=== PATIENT | male | born 1940 | race Caucasian/White ===

== ENCOUNTER 2021-12-12 17:14 | Inpatient (IN) | payer MEDICARE, MEDICAID ==
[~2021-12-12] VITALS: Ht 167.6 cm; Wt 49.0 kg
[~2021-12-12 17:14] MED LIST: LOSA-381 PO
[2021-12-12 19:32] LABS: BASOPHILS % (AUTO) 0.5 % (0.0-2.0); EOSINOPHILS % (AUTO) 0.9 % (1.0-6.0); HEMATOCRIT 35.4 % (41-53); HEMOGLOBIN 11.7 g/dL (13.5-17.5); LYMPHOCYTES # (AUTO) 1.5 K/uL (1.0-4.8); LYMPHOCYTES % (AUTO) 21.2 % (22.0-44.0); MEAN CORPUSCULAR HEMOGLOBIN 31.7 pg (26.0-34.0); MEAN CORPUSCULAR HGB CONC 33.1 G/dL (31.0-37.0); MEAN CORPUSCULAR VOLUME 96 fL (80-100); MONOCYTES # (AUTO) 0.3 K/uL (0.1-1.0); MONOCYTES % (AUTO) 4.8 % (2.0-9.0); NEUTROPHILS # (AUTO) 5.1 K/uL (1.8-7.7); NEUTROPHILS % (AUTO) 72.6 % (40.0-70.0); PLATELET COUNT (AUTO) 300 K/uL (150-450); RED CELL DISTRIBUTION WIDTH 14.5 % (11.5-14.5)
[2021-12-12 19:39] LABS: CALCIUM, TOTAL 9.7 mg/dL (8.8-10.5); CREATININE 2.49 mg/dL (0.60-1.30); POTASSIUM 5.9 mmol/L (3.5-5.1)
[2021-12-12 19:45] LABS: ALBUMIN 3.2 g/dL (3.4-5.0); BILIRUBIN,TOTAL 0.4 mg/dL (0.1-1.0); TOTAL PROTEIN, SERUM 8.6 g/dL (6.4-8.2)
[2021-12-12] MEDS ORDERED: ONDANSETRON HCL 4 MG/2 ML VIAL IVP PRN (20:30)
[2021-12-12] MEDS ORDERED: SODIUM POLYSTYRENE SULFONATE 15 GM/60 ML SUSPENSION BOTTLE PO ONE (22:15)
[2021-12-12] MEDS ORDERED: CALCIUM GLUCONATE 100 MG/ML 10 ML IVP ONE (22:15)
[2021-12-12] MEDS ORDERED: ALBUTEROL SULFATE 2.5 MG/0.5 ML NEB SOLUTION NEB ONE (22:15)
[2021-12-12] MEDS ORDERED: INSULIN REGULAR, HUMAN 100 UNITS/ML IVP ONE ×2 (22:15)
[2021-12-12] MEDS ORDERED: SODIUM BICARBONATE [ADULT] 8.4% 50 MEQ/50 ML SYRINGE IVP ONE (22:15)
[2021-12-12] MEDS ORDERED: DEXTROSE 50%-WATER 25 GM/50 ML SYRINGE IVP ONE ×2 (22:15)
[2021-12-12] MEDS ORDERED: SODIUM CHLORIDE 0.9% 1,000 ML IV SCH (23:30)
[2021-12-12] MEDS ORDERED: SODIUM CHLORIDE 0.9% 500 ML IV ONE (23:30)
[2021-12-12] MEDS ORDERED: 0.9% SODIUM CHLORIDE 5 ML NEB SOLUTION NEB ONE (23:35)
[2021-12-13 00:59] LABS: APPEARANCE,URINE CLEAR (CLEAR); BILIRUBIN,URINE NEGATIVE (NEGATIVE); GLUCOSE, URINE (UA) NEGATIVE (NEGATIVE); KETONES,URINE NEGATIVE (NEGATIVE); LEUKOCYTE ESTERASE ,URINE SMALL (NEGATIVE); NITRATE,URINE NEGATIVE (NEGATIVE); OCCULT BLOOD,URINE MODERATE (NEGATIVE); PH,URINE 5.5 (5.0-8.0); PROTEIN,URINE NEGATIVE (NEGATIVE); UROBILINOGEN,URINE 0.2 mg/dL (<=1.0)
[2021-12-13 01:00] VITALS: BP 118/70
[2021-12-13 01:00] LABS: CREATININE,URINE RANDOM 220.8 mg/dL (30.0-125.0)
[2021-12-13 01:03] LABS: SODIUM,URINE RANDOM < 5 mmol/l (20-110)
[2021-12-13 01:12] LABS: BACTERIA,URINE Few /HPF (None Seen)
[2021-12-13] MEDS: HEPARIN SODIUM,PORCINE 5,000 UNITS/ML VIAL SQ SCH ×3 (01:25→17:05)
[2021-12-13] MEDS: PIPERACILLIN SODIUM/TAZOBACTAM 2.25 GM in DEXTROSE 5%-WATER 50 ML IV SCH ×4 (01:26→20:25)
[2021-12-13 04:25] VITALS: BP 92/61
[2021-12-13] MEDS ORDERED: RINGERS SOLUTION,LACTATED 1,000 ML IV ONE (06:30)
[2021-12-13] MEDS ORDERED: DIPH-654 PO (07:08)
[2021-12-13] MEDS ORDERED: SERT-158 PO (07:08)
[2021-12-13] MEDS ORDERED: IBUP-1506 PO (07:08)
[2021-12-13] MEDS ORDERED: LOPE2 PO (07:08)
[2021-12-13] MEDS ORDERED: PSYL575P22 PO (07:08)
[2021-12-13] MEDS ORDERED: FINA-27 PO (07:08)
[2021-12-13] MEDS ORDERED: TRAM50TA4 PO (07:08)
[2021-12-13] MEDS ORDERED: PANT-31 PO (07:08)
[2021-12-13] MEDS ORDERED: MAGN200T4 PO (07:08)
[2021-12-13] MEDS ORDERED: DICL100G51 TP (07:08)
[2021-12-13] MEDS ORDERED: MIDO5TAB29 PO (07:08)
[2021-12-13] MEDS ORDERED: TAMS-13 PO (07:08)
[2021-12-13 09:41] VITALS: BP 97/66
[2021-12-13 12:00] VITALS: BP 110/65
[2021-12-13] MEDS: DEXTROSE 5%-0.9% SODIUM CHL 1,000 ML IV SCH ×2 (13:08→18:02)
[2021-12-13 14:09] LABS: BASOPHILS % (AUTO) 0.7 % (0.0-2.0); EOSINOPHILS % (AUTO) 0.5 % (1.0-6.0); HEMATOCRIT 31.7 % (41-53); HEMOGLOBIN 10.6 g/dL (13.5-17.5); LYMPHOCYTES # (AUTO) 1.1 K/uL (1.0-4.8); MEAN CORPUSCULAR HGB CONC 33.6 G/dL (31.0-37.0); MEAN CORPUSCULAR VOLUME 95 fL (80-100); MONOCYTES # (AUTO) 0.3 K/uL (0.1-1.0); MONOCYTES % (AUTO) 5.3 % (2.0-9.0); NEUTROPHILS # (AUTO) 3.5 K/uL (1.8-7.7); NEUTROPHILS % (AUTO) 70.5 % (40.0-70.0); PLATELET COUNT (AUTO) 288 K/uL (150-450); RED BLOOD CELL COUNT(AUTO) 3.33 MIL/uL (4.50-5.90); RED CELL DISTRIBUTION WIDTH 14.5 % (11.5-14.5)
[2021-12-13 14:11] LABS: CALCIUM, TOTAL 9.3 mg/dL (8.8-10.5); CREATININE 2.55 mg/dL (0.60-1.30); POTASSIUM 4.3 mmol/L (3.5-5.1)
[2021-12-13 14:18] LABS: BILIRUBIN,DIRECT 0.3 mg/dL (0.00-0.20); BILIRUBIN,TOTAL 0.5 mg/dL (0.1-1.0); MAGNESIUM 1.5 mg/dL (1.80-2.40); PHOSPHORUS 4.7 mg/dL (2.5-4.9); TOTAL PROTEIN, SERUM 8.1 g/dL (6.4-8.2)
[2021-12-13 16:00] VITALS: BP 97/55
[2021-12-13] MEDS ORDERED: MAGNESIUM SULFATE 2 GM/WATER 50 ML IV ONE (16:45)
[2021-12-13] MEDS ORDERED: SODIUM CHLORIDE 0.9% 250 ML IV ONE (17:52)
[2021-12-13 20:54] VITALS: BP 104/73
[2021-12-14] MEDS: PIPERACILLIN SODIUM/TAZOBACTAM 2.25 GM in DEXTROSE 5%-WATER 50 ML IV SCH ×4 (00:22→17:44)
[2021-12-14] MEDS: HEPARIN SODIUM,PORCINE 5,000 UNITS/ML VIAL SQ SCH ×3 (00:23→16:42)
[2021-12-14 00:35] VITALS: BP 110/67
[2021-12-14 04:25] VITALS: BP 101/53
[2021-12-14] MEDS: DEXTROSE 5%-0.9% SODIUM CHL 1,000 ML IV SCH ×2 (05:56→11:59)
[2021-12-14 07:15] VITALS: BP 99/49
[2021-12-14 07:48] LABS: CALCIUM, TOTAL 9.2 mg/dL (8.8-10.5); CREATININE 2.46 mg/dL (0.60-1.30); MAGNESIUM 2.5 mg/dL (1.80-2.40); PHOSPHORUS 4.3 mg/dL (2.5-4.9); POTASSIUM 3.9 mmol/L (3.5-5.1)
[2021-12-14 11:03] VITALS: BP 98/58
[2021-12-14 15:44] VITALS: BP 96/60
[2021-12-14 18:00] LABS: COVID AG,FIA SOURCE NASOPHARYNGEAL
[2021-12-14 20:55] VITALS: BP 101/56
[2021-12-14] MEDS ORDERED: MORPHINE SULFATE 2 MG/ML SYRINGE IVP PRN (22:15)
[2021-12-15] MEDS: PIPERACILLIN SODIUM/TAZOBACTAM 2.25 GM in DEXTROSE 5%-WATER 50 ML IV SCH ×3 (00:43→13:35)
[2021-12-15] MEDS: HEPARIN SODIUM,PORCINE 5,000 UNITS/ML VIAL SQ SCH ×2 (00:44→08:46)
[2021-12-15] MEDS: DEXTROSE 5%-0.9% SODIUM CHL 1,000 ML IV SCH ×2 (00:44→08:46)
[2021-12-15 04:26] VITALS: BP 111/68
[2021-12-15 06:22] LABS: CALCIUM, TOTAL 8.3 mg/dL (8.8-10.5); CREATININE 2.16 mg/dL (0.60-1.30); MAGNESIUM 1.8 mg/dL (1.80-2.40); PHOSPHORUS 2.9 mg/dL (2.5-4.9); POTASSIUM 3.8 mmol/L (3.5-5.1)
[2021-12-15 08:21] VITALS: BP 91/53
[2021-12-15 11:48] VITALS: BP 126/56
[2021-12-15] MEDS ORDERED: [UNRECOGNIZED DRUG - CODE] IV (15:21)
[2021-12-15] MEDS ORDERED: PIPE2.2515 IV (15:22)
== END 2021-12-15 16:00 | DRG 871 ==
LOC: EMS 17:17 → 5N 20:22
PROVIDERS: ADMIT Internal Medicine; ATTEND Internal Medicine
PROC: 02HV33Z Insertion of Infusion Device into Superior Vena Cava, Percutaneous Approach (ICD-10-PCS; principal; 2021-12-13)
DX: A41.9 Sepsis, unspecified organism (principal); G93.41 Metabolic encephalopathy; E43 Unspecified severe protein-calorie malnutrition; N39.0 Urinary tract infection, site not specified; K80.00 Calculus of gallbladder with acute cholecystitis without obstruction; Z68.1 Body mass index [BMI] 19.9 or less, adult; I69.351 Hemiplegia and hemiparesis following cerebral infarction affecting right dominant side; E87.5 Hyperkalemia; Z20.822 Contact with and (suspected) exposure to COVID-19; D64.9 Anemia, unspecified; E83.42 Hypomagnesemia; Z66 Do not resuscitate; N18.9 Chronic kidney disease, unspecified; I12.9 Hypertensive chronic kidney disease with stage 1 through stage 4 chronic kidney disease, or unspecified chronic kidney disease; Z93.3 Colostomy status; Z85.038 Personal history of other malignant neoplasm of large intestine; Z79.899 Other long term (current) drug therapy; Z82.49 Family history of ischemic heart disease and other diseases of the circulatory system; Z90.49 Acquired absence of other specified parts of digestive tract
CPT/HCPCS: 36245; 36569; 70450; 70551; 71045; 71250; 72192; 74150; 76705; 80048; 80053; 80076; 81001; 82550; 82570; 83690; 83735; 84100; 84300; 84484; 85025; 87081; 87086; 92610; 93005; 93306; 94640; 99291; J0610; J1644; J1815; J2270; J2543; J3475; J3490; J7030; J7042; J7050; J7060; 36415-L1; 36415-TC; J7613

== ENCOUNTER 2022-01-27 20:33 | Inpatient (IN) | payer MEDICARE, MEDICAID ==
[~2022-01-27] VITALS: Ht 167.6 cm; Wt 69.5 kg
[~2022-01-27 20:33] MED LIST changes: +ACET-3385 PO; +CALC1AMP IVP; +CHOL500013 PO; +ETHY1MED2 NASAL; +FAMO20 IVP; +FLUC200T85 PO; +HEPA500018 SQ; +LEVO750T68 PO; -LOSA-381 PO; +NYST30CR9 TP; +OXYC5 PO; +PIPE2.2515 IV; +THIA100V4 IVP; +[UNRECOGNIZED DRUG - CODE] IV
[2022-01-27 21:38] LABS: BASOPHILS % (AUTO) 0.4 % (0.0-2.0); EOSINOPHILS % (AUTO) 0.3 % (1.0-6.0); HEMATOCRIT 25.8 % (41-53); HEMOGLOBIN 8.4 g/dL (13.5-17.5); LYMPHOCYTES # (AUTO) 0.7 K/uL (1.0-4.8); LYMPHOCYTES % (AUTO) 3.7 % (22.0-44.0); MEAN CORPUSCULAR HEMOGLOBIN 29.8 pg (26.0-34.0); MEAN CORPUSCULAR HGB CONC 32.6 G/dL (31.0-37.0); MEAN CORPUSCULAR VOLUME 91 fL (80-100); MONOCYTES # (AUTO) 0.4 K/uL (0.1-1.0); MONOCYTES % (AUTO) 2.1 % (2.0-9.0); PLATELET COUNT (AUTO) 295 K/uL (150-450); RED BLOOD CELL COUNT(AUTO) 2.82 MIL/uL (4.50-5.90); RED CELL DISTRIBUTION WIDTH 16.2 % (11.5-14.5)
[2022-01-27 21:41] LABS: NEUTROPHILS % (AUTO) 93.5 % (40.0-70.0)
[2022-01-27 21:49] LABS: ANION GAP 9 mmol/L (8-16); CALCIUM, TOTAL 7.9 mg/dL (8.8-10.5); CARBON DIOXIDE 24 mmol/L (22-29); CHLORIDE 104 mmol/L (98-107); CREATININE 2.41 mg/dL (0.60-1.30); GLOMERULAR FILTR. RATE CALC 26 mL/min (>60); GLUCOSE,RANDOM 76 mg/dL (70-110); POTASSIUM 3.8 mmol/L (3.5-5.1); SODIUM SERUM 137 mmol/L (136-145); UREA NITROGEN, BLOOD 21 mg/dL (7-18)
[2022-01-27 21:50] LABS: INR 1.2 (0.9-1.1); PROTHROMBIN TIME 12.9 SEC (9.4-11.6)
[2022-01-27 21:55] LABS: ALANINE AMINOTRANSFERASE 34 U/L (12-78); ALBUMIN 1.4 g/dL (3.4-5.0); ALKALINE PHOSPHATASE 413 U/L (46-116); ASPARTATE AMINOTRANSFERASE 48 U/L (15-37); B-TYPE NATRIURETIC PEPTIDE 613 pg/mL (0-100); BILIRUBIN,TOTAL 0.7 mg/dL (0.1-1.0); TOTAL PROTEIN, SERUM 6.1 g/dL (6.4-8.2)
[2022-01-27 21:56] LABS: CREATINE KINASE, TOTAL ONLY < 7 U/L (39-308)
[2022-01-27 22:04] LABS: COVID AG,FIA SOURCE NASAL SWAB
[2022-01-27 22:15] LABS: APPEARANCE,URINE TURBID (CLEAR); BILIRUBIN,URINE NEGATIVE (NEGATIVE); GLUCOSE, URINE (UA) NEGATIVE (NEGATIVE); KETONES,URINE NEGATIVE (NEGATIVE); LEUKOCYTE ESTERASE ,URINE LARGE (NEGATIVE); NITRATE,URINE NEGATIVE (NEGATIVE); OCCULT BLOOD,URINE MODERATE (NEGATIVE); PH,URINE 5.5 (5.0-8.0); PROTEIN,URINE 30-70 mg/dL (NEGATIVE); SPECIFIC GRAVITIY, URINE 1.011 (1.003-1.030); UROBILINOGEN,URINE <=1.0 mg/dL (<=1.0)
[2022-01-27] MEDS ORDERED: AMPICILLIN SODIUM/SULBACTAM NA 1.5 GM in SODIUM CHLORIDE 0.9% 50 ML IV ONE (22:30)
[2022-01-27] MEDS ORDERED: DIPH-654 PO (23:17)
[2022-01-27] MEDS ORDERED: TRAM50TA4 PO (23:17)
[2022-01-27] MEDS ORDERED: FLUC200T85 PO (23:17)
[2022-01-27] MEDS ORDERED: LEVO750T68 PO (23:17)
[2022-01-27] MEDS ORDERED: PANT-31 PO (23:17)
[2022-01-27] MEDS ORDERED: THIA100T80 PO (23:17)
[2022-01-27] MEDS ORDERED: CALC0.2521 PO (23:17)
[2022-01-27] MEDS ORDERED: FAMO20 PO (23:17)
[2022-01-27] MEDS ORDERED: TAMS-13 PO (23:17)
[2022-01-27] MEDS ORDERED: LOPE2 PO (23:17)
[2022-01-27] MEDS ORDERED: SERT-158 PO (23:17)
[2022-01-27] MEDS ORDERED: MAGN400T7 PO (23:17)
[2022-01-27] MEDS ORDERED: DICL100G51 TP (23:17)
[2022-01-27] MEDS ORDERED: MIDO5TAB29 PO (23:17)
[2022-01-27] MEDS ORDERED: FINA-27 PO (23:17)
[2022-01-28 00:02] LABS: BACTERIA,URINE Moderate /HPF (None Seen); RBC,URINE 26-50 /HPF (0-2); WBC,URINE >100 /HPF (0-5)
[2022-01-28 00:03] LABS: SQUAMOUS EPITHELIAL CELL,UR Few /LPF (None Seen); YEAST,URINE Moderate /HPF (None Seen)
[2022-01-28] MEDS ORDERED: BARIUM SULFATE 0.1% SUSPENSION 450 ML BOTTLE PO ONE (01:30)
[2022-01-28] MEDS ORDERED: ACETAMINOPHEN 500 MG TABLET PO PRN (01:45)
[2022-01-28] MEDS ORDERED: ACETAMINOPHEN 325 MG TABLET PO PRN (01:45)
[2022-01-28] MEDS ORDERED: LOPERAMIDE HCL 2 MG CAPSULE PO PRN (01:45)
[2022-01-28] MEDS ORDERED: NYSTATIN 30 GM CREAM TP PRN (01:45)
[2022-01-28] MEDS ORDERED: ONDANSETRON HCL 4 MG/2 ML VIAL IVP PRN (01:45)
[2022-01-28 03:01] VITALS: BP 112/59
[2022-01-28] MEDS: SODIUM CHLORIDE 0.9% 1,000 ML IV SCH ×3 (03:10→17:45)
[2022-01-28 07:29] VITALS: BP 116/68
[2022-01-28] MEDS ORDERED: HEPARIN SODIUM,PORCINE 5,000 UNITS/ML VIAL SQ SCH (08:00)
[2022-01-28] MEDS ORDERED: VANCOMYCIN 1GM/WATER(PEG/NADA) 200 ML IV ONE (08:15)
[2022-01-28 09:00] LABS: CALCIUM, TOTAL 7.8 mg/dL (8.8-10.5); CREATININE 2.35 mg/dL (0.60-1.30); POTASSIUM 4.2 mmol/L (3.5-5.1)
[2022-01-28] MEDS ORDERED: PANTOPRAZOLE SODIUM 40 MG DR TABLET PO SCH (09:00)
[2022-01-28] MEDS ORDERED: MAGNESIUM OXIDE 400 MG TABLET PO SCH (09:00)
[2022-01-28] MEDS ORDERED: DIPHENOXYLATE/ATROP 2.5-0.025 MG TABLET PO SCH (09:00)
[2022-01-28] MEDS ORDERED: THIAMINE 100 MG/ML 2 ML VIAL IVP SCH (09:00)
[2022-01-28] MEDS ORDERED: FAMOTIDINE 20 MG TABLET PO SCH (09:00)
[2022-01-28] MEDS ORDERED: THIAMINE 100 MG TABLET PO SCH (09:00)
[2022-01-28] MEDS ORDERED: LEVOFLOXACIN 750 MG TABLET PO SCH (09:00)
[2022-01-28 09:20] LABS: BASOPHILS % (AUTO) 0.3 % (0.0-2.0); EOSINOPHILS % (AUTO) 1.2 % (1.0-6.0); HEMATOCRIT 24.9 % (41-53); HEMOGLOBIN 8.3 g/dL (13.5-17.5); LYMPHOCYTES # (AUTO) 0.9 K/uL (1.0-4.8); LYMPHOCYTES % (AUTO) 6.9 % (22.0-44.0); MEAN CORPUSCULAR HEMOGLOBIN 30.1 pg (26.0-34.0); MEAN CORPUSCULAR HGB CONC 33.5 G/dL (31.0-37.0); MEAN CORPUSCULAR VOLUME 90 fL (80-100); MONOCYTES # (AUTO) 0.4 K/uL (0.1-1.0); MONOCYTES % (AUTO) 2.6 % (2.0-9.0); NEUTROPHILS # (AUTO) 12.2 K/uL (1.8-7.7); PLATELET COUNT (AUTO) 257 K/uL (150-450); RED BLOOD CELL COUNT(AUTO) 2.77 MIL/uL (4.50-5.90); RED CELL DISTRIBUTION WIDTH 16.2 % (11.5-14.5)
[2022-01-28] MEDS: MIDODRINE HCL 5 MG TABLET PO SCH ×3 (10:40→21:27)
[2022-01-28] MEDS: FLUCONAZOLE 200 MG TABLET PO SCH (10:40)
[2022-01-28] MEDS: TAMSULOSIN HCL 0.4 MG CAPSULE PO SCH (10:41)
[2022-01-28] MEDS: FINASTERIDE 5 MG TABLET PO SCH (10:42)
[2022-01-28] MEDS: CHOLECALCIFEROL (VIT D3) 5,000 [125 MCG] UNITS CAPSULE PO SCH (10:43)
[2022-01-28] MEDS: FAMOTIDINE 10 MG/ML 2 ML VIAL IVP SCH (11:00)
[2022-01-28] MEDS: DICLOFENAC SODIUM 1% 100 GM GEL [2GM] TP SCH ×3 (11:04→21:29)
[2022-01-28] MEDS: CefTRIAXone SODIUM 2 GM in DEXTROSE 5%-WATER 50 ML IV SCH (11:04)
[2022-01-28 11:14] VITALS: BP 115/71
[2022-01-28] MEDS: MetroNIDAZOLE 500 MG/NACL 100 ML IV SCH ×2 (13:40→18:10)
[2022-01-28 14:42] VITALS: BP 104/68
[2022-01-28 20:08] VITALS: BP 108/69
[2022-01-28] MEDS: SERTRALINE HCL 50 MG TABLET PO SCH (21:28)
[2022-01-28 23:50] VITALS: BP 116/60
[2022-01-29] MEDS: SODIUM CHLORIDE 0.9% 1,000 ML IV SCH ×3 (00:25→17:45)
[2022-01-29] MEDS: MetroNIDAZOLE 500 MG/NACL 100 ML IV SCH ×3 (02:41→18:36)
[2022-01-29 04:43] VITALS: BP 115/69
[2022-01-29 07:01] VITALS: BP 111/64
[2022-01-29 07:35] LABS: BASOPHILS % (AUTO) 0.5 % (0.0-2.0); EOSINOPHILS % (AUTO) 1.1 % (1.0-6.0); HEMOGLOBIN 7.1 g/dL (13.5-17.5); LYMPHOCYTES # (AUTO) 0.8 K/uL (1.0-4.8); LYMPHOCYTES % (AUTO) 8.6 % (22.0-44.0); MEAN CORPUSCULAR HEMOGLOBIN 30.5 pg (26.0-34.0); MEAN CORPUSCULAR HGB CONC 33.8 G/dL (31.0-37.0); MEAN CORPUSCULAR VOLUME 90 fL (80-100); MONOCYTES # (AUTO) 0.3 K/uL (0.1-1.0); MONOCYTES % (AUTO) 3.2 % (2.0-9.0); PLATELET COUNT (AUTO) 239 K/uL (150-450); RED BLOOD CELL COUNT(AUTO) 2.33 MIL/uL (4.50-5.90); RED CELL DISTRIBUTION WIDTH 16.7 % (11.5-14.5)
[2022-01-29 07:41] LABS: NEUTROPHILS % (AUTO) 86.6 % (40.0-70.0)
[2022-01-29 07:48] LABS: CALCIUM, TOTAL 7.6 mg/dL (8.8-10.5); CREATININE 2.06 mg/dL (0.60-1.30); POTASSIUM 3.3 mmol/L (3.5-5.1)
[2022-01-29] MEDS: MIDODRINE HCL 5 MG TABLET PO SCH ×3 (10:00→20:08)
[2022-01-29] MEDS: FINASTERIDE 5 MG TABLET PO SCH (10:00)
[2022-01-29] MEDS: CHOLECALCIFEROL (VIT D3) 5,000 [125 MCG] UNITS CAPSULE PO SCH (10:00)
[2022-01-29] MEDS: TAMSULOSIN HCL 0.4 MG CAPSULE PO SCH (10:00)
[2022-01-29] MEDS: FLUCONAZOLE 200 MG TABLET PO SCH (10:00)
[2022-01-29] MEDS: FAMOTIDINE 10 MG/ML 2 ML VIAL IVP SCH (10:00)
[2022-01-29] MEDS: VANCOMYCIN HCL 500 MG in DEXTROSE 5%-WATER 100 ML IV SCH (10:01)
[2022-01-29 10:27] VITALS: BP 134/87
[2022-01-29] MEDS: DICLOFENAC SODIUM 1% 100 GM GEL [2GM] TP SCH ×3 (10:32→20:09)
[2022-01-29] MEDS: CefTRIAXone SODIUM 2 GM in DEXTROSE 5%-WATER 50 ML IV SCH (11:06)
[2022-01-29 14:15] VITALS: BP 126/75
[2022-01-29] MEDS ORDERED: POTASSIUM CHLORIDE 20 MEQ ER TABLET PO ONE (16:00)
[2022-01-29 19:20] VITALS: BP 130/73
[2022-01-29] MEDS: SERTRALINE HCL 50 MG TABLET PO SCH (20:08)
[2022-01-29 23:49] VITALS: BP 124/64
[2022-01-30] MEDS: MetroNIDAZOLE 500 MG/NACL 100 ML IV SCH ×3 (02:02→18:02)
[2022-01-30 03:40] VITALS: BP 141/71
[2022-01-30 07:37] VITALS: BP 154/96
[2022-01-30] MEDS: MIDODRINE HCL 5 MG TABLET PO SCH ×3 (08:19→21:09)
[2022-01-30] MEDS: VANCOMYCIN HCL 500 MG in DEXTROSE 5%-WATER 100 ML IV SCH (08:21)
[2022-01-30] MEDS: FAMOTIDINE 10 MG/ML 2 ML VIAL IVP SCH (08:22)
[2022-01-30] MEDS: CHOLECALCIFEROL (VIT D3) 5,000 [125 MCG] UNITS CAPSULE PO SCH (08:23)
[2022-01-30] MEDS: FLUCONAZOLE 200 MG TABLET PO SCH (08:23)
[2022-01-30] MEDS: TAMSULOSIN HCL 0.4 MG CAPSULE PO SCH (08:23)
[2022-01-30] MEDS: FINASTERIDE 5 MG TABLET PO SCH (08:23)
[2022-01-30] MEDS: DICLOFENAC SODIUM 1% 100 GM GEL [2GM] TP SCH ×3 (08:23→21:09)
[2022-01-30 09:15] LABS: BASOPHILS % (AUTO) 0.5 % (0.0-2.0); EOSINOPHILS % (AUTO) 0.4 % (1.0-6.0); HEMATOCRIT 24.1 % (41-53); HEMOGLOBIN 8.1 g/dL (13.5-17.5); LYMPHOCYTES # (AUTO) 0.8 K/uL (1.0-4.8); LYMPHOCYTES % (AUTO) 9.8 % (22.0-44.0); MEAN CORPUSCULAR HEMOGLOBIN 30.3 pg (26.0-34.0); MEAN CORPUSCULAR HGB CONC 33.4 G/dL (31.0-37.0); MEAN CORPUSCULAR VOLUME 91 fL (80-100); MONOCYTES # (AUTO) 0.2 K/uL (0.1-1.0); MONOCYTES % (AUTO) 2.8 % (2.0-9.0); NEUTROPHILS # (AUTO) 6.9 K/uL (1.8-7.7); PLATELET COUNT (AUTO) 265 K/uL (150-450); RED BLOOD CELL COUNT(AUTO) 2.66 MIL/uL (4.50-5.90); RED CELL DISTRIBUTION WIDTH 16.6 % (11.5-14.5)
[2022-01-30 09:18] LABS: NEUTROPHILS % (AUTO) 86.5 % (40.0-70.0)
[2022-01-30 09:24] LABS: CALCIUM, TOTAL 7.6 mg/dL (8.8-10.5); CREATININE 1.82 mg/dL (0.60-1.30); POTASSIUM 3.5 mmol/L (3.5-5.1)
[2022-01-30] MEDS: CefTRIAXone SODIUM 2 GM in DEXTROSE 5%-WATER 50 ML IV SCH (10:35)
[2022-01-30 11:29] VITALS: BP 157/97
[2022-01-30] MEDS: SODIUM CHLORIDE 0.9% 1,000 ML IV SCH ×4 (12:39→21:09)
[2022-01-30 12:42] VITALS: BP 134/87
[2022-01-30] MEDS ORDERED: FentaNYL CITRATE PF 100 MCG/2 ML VIAL ONE (14:40)
[2022-01-30] MEDS ORDERED: HEPARIN SODIUM 1000 UNITS/NS 0 ML ONE (14:41)
[2022-01-30] MEDS ORDERED: MIDAZOLAM HCL 2 MG/2 ML VIAL ONE (14:41)
[2022-01-30] MEDS ORDERED: LIDOCAINE/PF 1% 30 ML VIAL ONE (14:41)
[2022-01-30] MEDS ORDERED: FLUMAZENIL 0.1 MG/ML 5 ML VIAL IVP ONE (14:41)
[2022-01-30] MEDS ORDERED: NALOXONE HCL 0.4 MG/ML VIAL ONE (14:42)
[2022-01-30 16:29] VITALS: BP 138/80
[2022-01-30 19:55] VITALS: BP 133/89
[2022-01-30] MEDS: SERTRALINE HCL 50 MG TABLET PO SCH (21:09)
[2022-01-31] MEDS: MetroNIDAZOLE 500 MG/NACL 100 ML IV SCH ×3 (03:20→20:03)
[2022-01-31] MEDS: SODIUM CHLORIDE 0.9% 1,000 ML IV SCH ×2 (05:27→20:03)
[2022-01-31 06:51] LABS: BASOPHILS % (AUTO) 0.1 % (0.0-2.0); EOSINOPHILS % (AUTO) 0 % (1.0-6.0); HEMATOCRIT 25.3 % (41-53); HEMOGLOBIN 8.4 g/dL (13.5-17.5); LYMPHOCYTES # (AUTO) 0.5 K/uL (1.0-4.8); LYMPHOCYTES % (AUTO) 8.3 % (22.0-44.0); MEAN CORPUSCULAR HEMOGLOBIN 30.2 pg (26.0-34.0); MEAN CORPUSCULAR HGB CONC 33.2 G/dL (31.0-37.0); MEAN CORPUSCULAR VOLUME 91 fL (80-100); MONOCYTES # (AUTO) 0.1 K/uL (0.1-1.0); MONOCYTES % (AUTO) 2.1 % (2.0-9.0); PLATELET COUNT (AUTO) 242 K/uL (150-450); RED BLOOD CELL COUNT(AUTO) 2.79 MIL/uL (4.50-5.90); RED CELL DISTRIBUTION WIDTH 17.3 % (11.5-14.5)
[2022-01-31 06:54] LABS: NEUTROPHILS % (AUTO) 89.5 % (40.0-70.0)
[2022-01-31] MEDS ORDERED: IOHEXOL 240 MG/ML 20 ML VIAL ONE ×3 (07:01→08:37)
[2022-01-31 07:05] LABS: CALCIUM, TOTAL 7.8 mg/dL (8.8-10.5); CREATININE 1.64 mg/dL (0.60-1.30); POTASSIUM 3.3 mmol/L (3.5-5.1); VANCOMYCIN,RANDOM 12.1 mcg/mL (25.0-50.0)
[2022-01-31] MEDS ORDERED: SODIUM CHLORIDE 0.9% 1,000 ML IV ONE (07:30)
[2022-01-31] MEDS ORDERED: BUPIVACAINE HCL/PF 0.5% 30 ML VIAL ONE (08:10)
[2022-01-31] MEDS: DICLOFENAC SODIUM 1% 100 GM GEL [2GM] TP SCH ×3 (08:47→20:34)
[2022-01-31] MEDS: MIDODRINE HCL 5 MG TABLET PO SCH ×3 (09:00→20:34)
[2022-01-31] MEDS: TAMSULOSIN HCL 0.4 MG CAPSULE PO SCH (09:00)
[2022-01-31] MEDS: CHOLECALCIFEROL (VIT D3) 5,000 [125 MCG] UNITS CAPSULE PO SCH (09:00)
[2022-01-31] MEDS: FLUCONAZOLE 200 MG TABLET PO SCH (09:00)
[2022-01-31] MEDS: FINASTERIDE 5 MG TABLET PO SCH (09:00)
[2022-01-31] MEDS: VANCOMYCIN HCL 500 MG in DEXTROSE 5%-WATER 100 ML IV SCH (10:25)
[2022-01-31 13:58] VITALS: BP 129/81
[2022-01-31] MEDS: CefTRIAXone SODIUM 2 GM in DEXTROSE 5%-WATER 50 ML IV SCH (14:01)
[2022-01-31 14:28] VITALS: BP 126/73
[2022-01-31] MEDS: FAMOTIDINE 10 MG/ML 2 ML VIAL IVP SCH (14:31)
[2022-01-31 16:22] VITALS: BP 142/79
[2022-01-31] MEDS: SERTRALINE HCL 50 MG TABLET PO SCH (20:04)
[2022-01-31 20:21] VITALS: BP 133/75
[2022-01-31] MEDS: OXYGEN THERAPY IH SCH (20:38)
[2022-02-01] VITALS (7 sets, daily range): BP systolic 117–133; BP diastolic 75–84
[2022-02-01] MEDS: MetroNIDAZOLE 500 MG/NACL 100 ML IV SCH ×2 (03:10→12:13)
[2022-02-01] MEDS ORDERED: PROPOFOL 1% 20 ML VIAL IVP ONE (05:03)
[2022-02-01] MEDS: SODIUM CHLORIDE 0.9% 1,000 ML IV SCH (05:35)
[2022-02-01 06:06] LABS: BASOPHILS % (AUTO) 0.7 % (0.0-2.0); EOSINOPHILS % (AUTO) 0.1 % (1.0-6.0); HEMATOCRIT 24.4 % (41-53); HEMOGLOBIN 8.1 g/dL (13.5-17.5); LYMPHOCYTES # (AUTO) 0.8 K/uL (1.0-4.8); LYMPHOCYTES % (AUTO) 8.7 % (22.0-44.0); MEAN CORPUSCULAR HEMOGLOBIN 30.1 pg (26.0-34.0); MEAN CORPUSCULAR HGB CONC 33.1 G/dL (31.0-37.0); MEAN CORPUSCULAR VOLUME 91 fL (80-100); MONOCYTES # (AUTO) 0.3 K/uL (0.1-1.0); MONOCYTES % (AUTO) 2.8 % (2.0-9.0); NEUTROPHILS # (AUTO) 7.9 K/uL (1.8-7.7); PLATELET COUNT (AUTO) 221 K/uL (150-450); RED BLOOD CELL COUNT(AUTO) 2.68 MIL/uL (4.50-5.90)
[2022-02-01 06:12] LABS: NEUTROPHILS % (AUTO) 87.7 % (40.0-70.0)
[2022-02-01 06:34] LABS: CALCIUM, TOTAL 7.5 mg/dL (8.8-10.5); CREATININE 1.55 mg/dL (0.60-1.30); POTASSIUM 3.3 mmol/L (3.5-5.1)
[2022-02-01] MEDS: VANCOMYCIN HCL 750 MG in DEXTROSE 5%-WATER 250 ML IV SCH (08:23)
[2022-02-01] MEDS: CHOLECALCIFEROL (VIT D3) 5,000 [125 MCG] UNITS CAPSULE PO SCH (08:24)
[2022-02-01] MEDS: FINASTERIDE 5 MG TABLET PO SCH (08:24)
[2022-02-01] MEDS: FAMOTIDINE 10 MG/ML 2 ML VIAL IVP SCH (08:25)
[2022-02-01] MEDS: FLUCONAZOLE 200 MG TABLET PO SCH (08:25)
[2022-02-01] MEDS: TAMSULOSIN HCL 0.4 MG CAPSULE PO SCH (08:26)
[2022-02-01] MEDS: DICLOFENAC SODIUM 1% 100 GM GEL [2GM] TP SCH ×3 (08:41→20:39)
[2022-02-01] MEDS: OXYGEN THERAPY IH SCH (08:42)
[2022-02-01] MEDS: MIDODRINE HCL 5 MG TABLET PO SCH ×3 (08:43→20:39)
[2022-02-01] MEDS: CefTRIAXone SODIUM 2 GM in DEXTROSE 5%-WATER 50 ML IV SCH (11:25)
[2022-02-01] MEDS ORDERED: POTASSIUM CHLORIDE 20 MEQ ER TABLET PO PRN (11:45)
[2022-02-01] MEDS: POTASSIUM CHL 10 MEQ/WATER 50 ML IV PRN ×3 (18:17→23:27)
[2022-02-01] MEDS: SERTRALINE HCL 50 MG TABLET PO SCH (20:39)
[2022-02-02 04:59] VITALS: BP 125/74
[2022-02-02 06:20] LABS: BASOPHILS % (AUTO) 0.2 % (0.0-2.0); EOSINOPHILS % (AUTO) 0.2 % (1.0-6.0); HEMATOCRIT 22.1 % (41-53); HEMOGLOBIN 7.3 g/dL (13.5-17.5); LYMPHOCYTES # (AUTO) 0.9 K/uL (1.0-4.8); LYMPHOCYTES % (AUTO) 13.7 % (22.0-44.0); MEAN CORPUSCULAR HGB CONC 33.1 G/dL (31.0-37.0); MEAN CORPUSCULAR VOLUME 91 fL (80-100); MONOCYTES # (AUTO) 0.2 K/uL (0.1-1.0); MONOCYTES % (AUTO) 3.1 % (2.0-9.0); NEUTROPHILS # (AUTO) 5.3 K/uL (1.8-7.7); NEUTROPHILS % (AUTO) 82.8 % (40.0-70.0); PLATELET COUNT (AUTO) 210 K/uL (150-450); RED BLOOD CELL COUNT(AUTO) 2.44 MIL/uL (4.50-5.90)
[2022-02-02 06:32] LABS: CALCIUM, TOTAL 7.6 mg/dL (8.8-10.5); CREATININE 1.46 mg/dL (0.60-1.30); MAGNESIUM 1.1 mg/dL (1.80-2.40); PHOSPHORUS 3.3 mg/dL (2.5-4.9); POTASSIUM 3.9 mmol/L (3.5-5.1)
[2022-02-02 08:07] VITALS: BP 120/83
[2022-02-02] MEDS: VANCOMYCIN HCL 750 MG in DEXTROSE 5%-WATER 250 ML IV SCH (08:37)
[2022-02-02] MEDS: FLUCONAZOLE 200 MG TABLET PO SCH (08:37)
[2022-02-02] MEDS: FINASTERIDE 5 MG TABLET PO SCH (08:37)
[2022-02-02] MEDS: TAMSULOSIN HCL 0.4 MG CAPSULE PO SCH (08:37)
[2022-02-02] MEDS: MIDODRINE HCL 5 MG TABLET PO SCH ×3 (08:39→21:11)
[2022-02-02] MEDS: CHOLECALCIFEROL (VIT D3) 5,000 [125 MCG] UNITS CAPSULE PO SCH (08:39)
[2022-02-02] MEDS: FAMOTIDINE 10 MG/ML 2 ML VIAL IVP SCH (08:40)
[2022-02-02] MEDS: DICLOFENAC SODIUM 1% 100 GM GEL [2GM] TP SCH ×3 (08:40→21:11)
[2022-02-02] MEDS ORDERED: MAGNESIUM SULFATE 4 GM/WATER 100 ML IV ONE (10:45)
[2022-02-02 12:01] LABS: GLUCOMETER DEV NAME(LOC) 5N.1C; GLUCOSE,POINT OF CARE 118 MG/DL (70-110)
[2022-02-02 12:06] VITALS: BP 116/72
[2022-02-02 15:39] VITALS: BP_SYST 110; BP_SYST 80; BP_DIAS 110; BP_DIAS 69
[2022-02-02 19:27] VITALS: BP 106/71
[2022-02-02] MEDS: SERTRALINE HCL 50 MG TABLET PO SCH (21:11)
[2022-02-02 23:52] VITALS: BP 100/63
[2022-02-03 04:34] VITALS: BP 109/69
[2022-02-03 07:05] LABS: BASOPHILS % (AUTO) 0.5 % (0.0-2.0); EOSINOPHILS % (AUTO) 2.2 % (1.0-6.0); HEMATOCRIT 21.5 % (41-53); HEMOGLOBIN 7.1 g/dL (13.5-17.5); LYMPHOCYTES # (AUTO) 0.9 K/uL (1.0-4.8); LYMPHOCYTES % (AUTO) 14.4 % (22.0-44.0); MEAN CORPUSCULAR HEMOGLOBIN 29.7 pg (26.0-34.0); MEAN CORPUSCULAR HGB CONC 32.8 G/dL (31.0-37.0); MEAN CORPUSCULAR VOLUME 91 fL (80-100); MONOCYTES # (AUTO) 0.2 K/uL (0.1-1.0); MONOCYTES % (AUTO) 3.6 % (2.0-9.0); NEUTROPHILS # (AUTO) 5.1 K/uL (1.8-7.7); NEUTROPHILS % (AUTO) 79.3 % (40.0-70.0); PLATELET COUNT (AUTO) 200 K/uL (150-450); RED BLOOD CELL COUNT(AUTO) 2.38 MIL/uL (4.50-5.90); RED CELL DISTRIBUTION WIDTH 17.1 % (11.5-14.5)
[2022-02-03 07:23] VITALS: BP 101/58
[2022-02-03 07:27] LABS: ALBUMIN 1.4 g/dL (3.4-5.0); BILIRUBIN,TOTAL 0.2 mg/dL (0.1-1.0); CALCIUM, TOTAL 7.7 mg/dL (8.8-10.5); CREATININE 1.37 mg/dL (0.60-1.30); POTASSIUM 3.7 mmol/L (3.5-5.1); TOTAL PROTEIN, SERUM 5.3 g/dL (6.4-8.2)
[2022-02-03] MEDS: VANCOMYCIN HCL 750 MG in DEXTROSE 5%-WATER 250 ML IV SCH (08:49)
[2022-02-03] MEDS: FINASTERIDE 5 MG TABLET PO SCH (08:50)
[2022-02-03] MEDS: MULTIVITAMINS WITH MINERALS, THERAPEUTIC TABLET PO SCH (08:50)
[2022-02-03] MEDS: TAMSULOSIN HCL 0.4 MG CAPSULE PO SCH (08:50)
[2022-02-03] MEDS: THIAMINE 100 MG TABLET PO SCH (08:50)
[2022-02-03] MEDS: MIDODRINE HCL 5 MG TABLET PO SCH ×3 (08:51→20:33)
[2022-02-03] MEDS: FAMOTIDINE 10 MG/ML 2 ML VIAL IVP SCH (09:11)
[2022-02-03] MEDS: CHOLECALCIFEROL (VIT D3) 5,000 [125 MCG] UNITS CAPSULE PO SCH (09:12)
[2022-02-03] MEDS: DICLOFENAC SODIUM 1% 100 GM GEL [2GM] TP SCH ×3 (09:12→20:33)
[2022-02-03] MEDS ORDERED: SODIUM CHLORIDE 0.9% 500 ML IV ONE (09:47)
[2022-02-03] MEDS: FLUCONAZOLE 200 MG/NACL ISOOSM 100 ML IV SCH (10:30)
[2022-02-03 12:15] VITALS: BP 118/73
[2022-02-03 15:49] VITALS: BP 111/66
[2022-02-03 19:20] VITALS: BP 114/64
[2022-02-03] MEDS: SERTRALINE HCL 50 MG TABLET PO SCH (20:34)
[2022-02-03 23:23] VITALS: BP 106/71
[2022-02-04 04:00] VITALS: BP 150/66
[2022-02-04 07:35] VITALS: BP 113/76
[2022-02-04 07:36] LABS: BASOPHILS % (AUTO) 0.8 % (0.0-2.0); EOSINOPHILS % (AUTO) 3.3 % (1.0-6.0); HEMOGLOBIN 7.3 g/dL (13.5-17.5); LYMPHOCYTES # (AUTO) 0.9 K/uL (1.0-4.8); LYMPHOCYTES % (AUTO) 15.3 % (22.0-44.0); MEAN CORPUSCULAR HGB CONC 33.1 G/dL (31.0-37.0); MEAN CORPUSCULAR VOLUME 91 fL (80-100); MONOCYTES # (AUTO) 0.2 K/uL (0.1-1.0); MONOCYTES % (AUTO) 2.9 % (2.0-9.0); NEUTROPHILS # (AUTO) 4.4 K/uL (1.8-7.7); NEUTROPHILS % (AUTO) 77.7 % (40.0-70.0); PLATELET COUNT (AUTO) 106 K/uL (150-450); RED BLOOD CELL COUNT(AUTO) 2.43 MIL/uL (4.50-5.90); RED CELL DISTRIBUTION WIDTH 16.9 % (11.5-14.5)
[2022-02-04 07:50] LABS: CALCIUM, TOTAL 7.7 mg/dL (8.8-10.5); CREATININE 1.31 mg/dL (0.60-1.30); POTASSIUM 3.9 mmol/L (3.5-5.1); VANCOMYCIN,RANDOM 21.9 mcg/mL (25.0-50.0)
[2022-02-04] MEDS: DICLOFENAC SODIUM 1% 100 GM GEL [2GM] TP SCH ×4 (09:00→20:21)
[2022-02-04] MEDS: MIDODRINE HCL 5 MG TABLET PO SCH ×3 (09:50→20:21)
[2022-02-04] MEDS: TAMSULOSIN HCL 0.4 MG CAPSULE PO SCH (09:50)
[2022-02-04] MEDS: THIAMINE 100 MG TABLET PO SCH (09:50)
[2022-02-04] MEDS: FINASTERIDE 5 MG TABLET PO SCH (09:50)
[2022-02-04] MEDS: VANCOMYCIN HCL 750 MG in DEXTROSE 5%-WATER 250 ML IV SCH (09:50)
[2022-02-04] MEDS: CHOLECALCIFEROL (VIT D3) 5,000 [125 MCG] UNITS CAPSULE PO SCH (09:50)
[2022-02-04] MEDS: MULTIVITAMINS WITH MINERALS, THERAPEUTIC TABLET PO SCH (09:51)
[2022-02-04] MEDS: FAMOTIDINE 10 MG/ML 2 ML VIAL IVP SCH (09:51)
[2022-02-04] MEDS ORDERED: SODIUM CHLORIDE 0.9% 250 ML IV ONE (10:01)
[2022-02-04 11:25] VITALS: BP 116/73
[2022-02-04] MEDS: FLUCONAZOLE 200 MG/NACL ISOOSM 100 ML IV SCH (13:36)
[2022-02-04] MEDS: OXYGEN THERAPY IH SCH (13:37)
[2022-02-04 15:25] VITALS: BP 130/75
[2022-02-04 19:34] VITALS: BP 100/65
[2022-02-04] MEDS: SERTRALINE HCL 50 MG TABLET PO SCH (20:21)
[2022-02-04 23:39] VITALS: BP 104/68
[2022-02-05 03:45] VITALS: BP 105/63
[2022-02-05 07:29] LABS: CALCIUM, TOTAL 7.6 mg/dL (8.8-10.5); CREATININE 1.24 mg/dL (0.60-1.30); POTASSIUM 3.6 mmol/L (3.5-5.1)
[2022-02-05 07:55] VITALS: BP 110/70
[2022-02-05] MEDS: MULTIVITAMINS WITH MINERALS, THERAPEUTIC TABLET PO SCH (08:18)
[2022-02-05] MEDS: TAMSULOSIN HCL 0.4 MG CAPSULE PO SCH (08:18)
[2022-02-05] MEDS: FINASTERIDE 5 MG TABLET PO SCH (08:18)
[2022-02-05] MEDS: MIDODRINE HCL 5 MG TABLET PO SCH ×3 (08:18→21:28)
[2022-02-05] MEDS: FAMOTIDINE 10 MG/ML 2 ML VIAL IVP SCH (08:18)
[2022-02-05] MEDS: THIAMINE 100 MG TABLET PO SCH (08:18)
[2022-02-05] MEDS: CHOLECALCIFEROL (VIT D3) 5,000 [125 MCG] UNITS CAPSULE PO SCH (08:18)
[2022-02-05] MEDS: FLUCONAZOLE 200 MG/NACL ISOOSM 100 ML IV SCH (08:18)
[2022-02-05] MEDS: OXYGEN THERAPY IH SCH ×3 (08:19→20:00)
[2022-02-05] MEDS: DICLOFENAC SODIUM 1% 100 GM GEL [2GM] TP SCH ×3 (08:22→21:28)
[2022-02-05 11:37] VITALS: BP 109/60
[2022-02-05 16:25] VITALS: BP 107/65
[2022-02-05 20:12] VITALS: BP 130/74
[2022-02-05] MEDS: SERTRALINE HCL 50 MG TABLET PO SCH (21:27)
[2022-02-06 00:26] VITALS: BP 140/72
[2022-02-06 04:24] VITALS: BP 129/70
[2022-02-06 07:30] VITALS: BP 135/81
[2022-02-06] MEDS: OXYGEN THERAPY IH SCH (08:00)
[2022-02-06 08:19] LABS: CREATININE 1.2 mg/dL (0.60-1.30)
[2022-02-06] MEDS: MIDODRINE HCL 5 MG TABLET PO SCH ×3 (10:08→22:13)
[2022-02-06] MEDS: FLUCONAZOLE 200 MG/NACL ISOOSM 100 ML IV SCH (10:08)
[2022-02-06] MEDS: THIAMINE 100 MG TABLET PO SCH (10:09)
[2022-02-06] MEDS: MULTIVITAMINS WITH MINERALS, THERAPEUTIC TABLET PO SCH (10:09)
[2022-02-06] MEDS: CHOLECALCIFEROL (VIT D3) 5,000 [125 MCG] UNITS CAPSULE PO SCH (10:09)
[2022-02-06] MEDS: FINASTERIDE 5 MG TABLET PO SCH (10:09)
[2022-02-06] MEDS: FAMOTIDINE 10 MG/ML 2 ML VIAL IVP SCH (10:09)
[2022-02-06] MEDS: TAMSULOSIN HCL 0.4 MG CAPSULE PO SCH (10:09)
[2022-02-06] MEDS: DICLOFENAC SODIUM 1% 100 GM GEL [2GM] TP SCH ×3 (10:11→22:13)
[2022-02-06 11:30] VITALS: BP 128/72
[2022-02-06 15:11] VITALS: BP 128/73
[2022-02-06 20:08] VITALS: BP 123/75
[2022-02-06] MEDS: SERTRALINE HCL 50 MG TABLET PO SCH (22:13)
[2022-02-07 00:18] VITALS: BP 125/70
[2022-02-07 04:40] VITALS: BP 129/74
[2022-02-07 07:36] VITALS: BP 128/71
[2022-02-07] MEDS: OXYGEN THERAPY IH SCH (08:00)
[2022-02-07 08:06] LABS: STONE COLOR Tan; STONE SIZE 9x4 mm; STONE URIC ACID 100 %; STONE WEIGHT 466 mg
[2022-02-07] MEDS: FAMOTIDINE 10 MG/ML 2 ML VIAL IVP SCH (08:46)
[2022-02-07] MEDS: CHOLECALCIFEROL (VIT D3) 5,000 [125 MCG] UNITS CAPSULE PO SCH (08:46)
[2022-02-07] MEDS: FINASTERIDE 5 MG TABLET PO SCH (08:46)
[2022-02-07] MEDS: TAMSULOSIN HCL 0.4 MG CAPSULE PO SCH (08:46)
[2022-02-07] MEDS: MIDODRINE HCL 5 MG TABLET PO SCH ×2 (08:46→16:05)
[2022-02-07] MEDS: THIAMINE 100 MG TABLET PO SCH (08:46)
[2022-02-07] MEDS: MULTIVITAMINS WITH MINERALS, THERAPEUTIC TABLET PO SCH (08:46)
[2022-02-07] MEDS: FLUCONAZOLE 200 MG/NACL ISOOSM 100 ML IV SCH (08:49)
[2022-02-07] MEDS: DICLOFENAC SODIUM 1% 100 GM GEL [2GM] TP SCH ×2 (09:00→16:00)
[2022-02-07 11:05] VITALS: BP 126/72
[2022-02-07 15:12] VITALS: BP 129/73
[2022-02-07] MEDS ORDERED: [UNRECOGNIZED DRUG - CODE] IV (16:50)
[2022-02-07] MEDS ORDERED: ONDA4VIA22 IV (16:52)
== END 2022-02-07 17:20 | DRG 853 ==
LOC: EMS 20:33 → 5S 01-28 02:18 → 6S 01-30 12:20 → 5S 01-31 13:30
PROVIDERS: ADMIT Internal Medicine; ATTEND Internal Medicine
PROC: 0T778DZ Dilation of Left Ureter with Intraluminal Device, Via Natural or Artificial Opening Endoscopic (ICD-10-PCS; 2022-01-31)
PROC: BT141ZZ Fluoroscopy of Kidneys, Ureters and Bladder using Low Osmolar Contrast (ICD-10-PCS; principal; 2022-01-31 07:30)
DX: A41.89 Other specified sepsis (principal); E43 Unspecified severe protein-calorie malnutrition; J18.9 Pneumonia, unspecified organism; N13.6 Pyonephrosis; N17.9 Acute kidney failure, unspecified; I69.354 Hemiplegia and hemiparesis following cerebral infarction affecting left non-dominant side; Z16.24 Resistance to multiple antibiotics; E86.0 Dehydration; I12.9 Hypertensive chronic kidney disease with stage 1 through stage 4 chronic kidney disease, or unspecified chronic kidney disease; N18.9 Chronic kidney disease, unspecified; B96.20 Unspecified Escherichia coli [E. coli] as the cause of diseases classified elsewhere; Z20.822 Contact with and (suspected) exposure to COVID-19; N21.0 Calculus in bladder; N40.0 Benign prostatic hyperplasia without lower urinary tract symptoms; Z85.038 Personal history of other malignant neoplasm of large intestine; Z93.2 Ileostomy status; Z93.3 Colostomy status; Z68.24 Body mass index [BMI] 24.0-24.9, adult
CPT/HCPCS: 70450; 71045; 74176; 76770; 78707; 80048; 80053; 80202; 81001; 82365; 82550; 82962; 83605; 83735; 83880; 84100; 84132; 84484; 85025; 85610; 85730; 86850; 86900; 86901; 87040; 87077; 87081; 87086; 87106; 87186; 87205; 88300; 93005; 99285; A9562; J0295; J0696; J1450; J1644; J2250; J2310; J2704; J3010; J3370; J3411; J3475; J3480; J3490; J7030; J7040; J7050; J7060; Q9966; Q9967; 36415-L1; 36415-TC; C1716; Z7610